=== PATIENT | female | born 1935 | race Caucasian/White ===

== ENCOUNTER 2021-11-13 10:47 | Inpatient (IN) ==
[2021-11-13 11:37] LABS: Basophils # 0.1 K/mcL (0.0-0.2); Basophils % 0.7 %; Eosinophils # 0.3 K/mcL (0.0-0.6); Hematocrit 43.9 % (35.3-44.9); Hemoglobin 14.8 g/dL (11.5-15.4); Immature Granulocytes % 0.2 % (0-4); Lymphocytes # 0.8 K/mcL (0.6-4.6); Lymphocytes % 9.5 %; Mean Corpuscular HGB Conc 33.7 g/dL (31.6-35.5); Mean Corpuscular Hemoglobin 31.9 pg (28.0-33.3); Mean Corpuscular Volume 94.6 fL (83.0-100.0); Mean Platelet Volume 9.4 fL (9.4-12.4); Monocytes # 0.5 K/mcL (0.0-1.3); Monocytes % 6.3 %; Neutrophils # 6.6 K/mcL (1.6-8.9); Platelet Count 218 K/mcL (140-400); Red Blood Count 4.64 M/mcL (3.82-4.97); Red Cell Distribution Width 12.1 % (11.5-14.5); Segmented Neutrophils % 80.3 %; White Blood Count 8.2 K/mcL (4.3-11.1)
[2021-11-13 11:58] LABS: Alanine Aminotransferase 15 Units/L (7-52); Albumin 3.8 g/dL (3.5-5.7); Albumin/Globulin Ratio 1.5 (1.1-2.2); Alkaline Phosphatase 87 Units/L (34-104); Aspartate Amino Transferase 31 Units/L (13-39); BUN/Creatinine Ratio 26 (6-26); Bilirubin,Total 0.4 mg/dL (0.3-1.0); Blood Urea Nitrogen 24 mg/dL (8-23); Calcium 8.9 mg/dL (8.6-10.3); Carbon Dioxide 29 mEq/L (23-29); Chloride 104 mEq/L (98-107); Globulin 2.5 g/dL (2.4-3.5); Glucose 344 mg/dL (70-105); Osmolality,Calculated 312 (280-300); Potassium 3.9 mEq/L (3.5-5.1); Sodium 142 mEq/L (136-145); Total Protein 6.3 g/dL (6.4-8.9); Troponin I < 0.03 ng/mL (< 0.04); eGFR For African Americans > 60 (> 60); eGFR For Non-African Americans 57 (> 60)
[2021-11-13] MEDS ORDERED: Insulin LISPRO 300 UNITS/3 ML VIAL SUBQ ONE (13:12)
[2021-11-13] MEDS ORDERED: Dextrose 4 GM Chewable Tablets PO PRN ×2 (13:17)
[2021-11-13] MEDS ORDERED: D5% in Water 1,000 ML IVC PRN (13:17)
[2021-11-13] MEDS ORDERED: *HR* Dextrose 50 % in Water (Syg) 50 ML SYRINGE IVP PRN (13:17)
[2021-11-13] MEDS ORDERED: Aspirin 325 MG TABLET PO ONE (13:21)
[2021-11-13] MEDS: Insulin LISPRO 300 UNITS/3 ML VIAL SUBQ SCH ×3 (14:20→21:30)
[2021-11-13] MEDS ORDERED: Ondansetron 4 MG/2 ML VIAL IVP PRN (14:26)
[2021-11-13] MEDS ORDERED: Naloxone 0.4 MG/ML INJ IVP PRN (14:26)
[2021-11-13 15:03] LABS: Bacteria,Urine Few per hpf (None-Few); Bilirubin,Urine Negative (Negative); Blood,Urine Negative (Negative); Clarity,Urine Clear (Clear); Color,Urine Light-Yellow (Yellow); Glucose,Urine (UA) >=1000 mg/dL (Normal); Ketones,Urine Negative (Negative); Leukocyte Esterase,Urine Small (Negative); Mucus,Urine Few per lpf (None-Few); Nitrite,Urine Negative (Negative); PH,Urine 5.5 pH Units (5.0-8.0); Protein,Urine Trace mg/dL (Neg-Trace); RBC,Urine 0-3 per hpf (0-3); Urobilinogen,Urine Normal (Normal); WBC,Urine 30-50 per hpf (0-3)
[2021-11-13] MEDS ORDERED: Perflutren Lipid Microsphere 1.3 ML in 0.9 % Sodium Chloride 8.7 ML IVP PRN (15:20)
[2021-11-13] MEDS: amLODIPine 5 MG TABLET PO SCH (16:09)
[2021-11-14 05:25] LABS: INR 1.1; Prothrombin Time 12.1 Seconds (9.4-12.1)
[2021-11-14 05:52] LABS: Alanine Aminotransferase 14 Units/L (7-52); Albumin 3.6 g/dL (3.5-5.7); Albumin/Globulin Ratio 1.4 (1.1-2.2); Alkaline Phosphatase 83 Units/L (34-104); Aspartate Amino Transferase 30 Units/L (13-39); BUN/Creatinine Ratio 28 (6-26); Bilirubin,Total 0.5 mg/dL (0.3-1.0); Blood Urea Nitrogen 23 mg/dL (8-23); Calcium 8.8 mg/dL (8.6-10.3); Carbon Dioxide 23 mEq/L (23-29); Chloride 106 mEq/L (98-107); Chol/HDL Ratio 2.6 (0-4.9); Cholesterol 136 mg/dL (< 200); Estimated Average Glucose 217 mg/dl; Globulin 2.6 g/dL (2.4-3.5); Glucose 216 mg/dL (70-105); HDL Cholesterol 53 mg/dL (40-59); Hemoglobin A1C 9.2 %; LDL Cholesterol,Calculated 58 mg/dL (< 100); Osmolality,Calculated 302 (280-300); Potassium 3.9 mEq/L (3.5-5.1); Sodium 141 mEq/L (136-145); Total Protein 6.2 g/dL (6.4-8.9); Triglycerides 126 mg/dL (< 150); eGFR For African Americans > 60 (> 60); eGFR For Non-African Americans > 60 (> 60)
[2021-11-14] MEDS: amLODIPine 5 MG TABLET PO SCH (07:56)
[2021-11-14] MEDS: Aspirin Enteric Coated 81 MG Tablet PO SCH (07:56)
[2021-11-14] MEDS: Insulin LISPRO 300 UNITS/3 ML VIAL SUBQ SCH ×4 (07:58→20:20)
[2021-11-14 11:31] LABS: Folate 14.7 ng/mL (3.0-16.0)
[2021-11-14] MEDS: *HR* Metformin 500 MG TABLET PO SCH (17:22)
[2021-11-14] MEDS ORDERED: Insulin DETEMIR 100 UNIT/ML X5UNITS SUBQ SCH (21:00)
[2021-11-15] MEDS: *HR* Metformin 500 MG TABLET PO SCH ×2 (08:15→16:47)
[2021-11-15] MEDS: Aspirin Enteric Coated 81 MG Tablet PO SCH (08:15)
[2021-11-15] MEDS: amLODIPine 5 MG TABLET PO SCH (08:15)
[2021-11-15] MEDS: Insulin LISPRO 300 UNITS/3 ML VIAL SUBQ SCH ×4 (08:16→22:02)
[2021-11-15] MEDS: Insulin DETEMIR 100 UNIT/ML X5UNITS SUBQ SCH (22:02)
[2021-11-16] MEDS: *HR* Metformin 500 MG TABLET PO SCH ×2 (08:36→17:30)
[2021-11-16] MEDS: Aspirin Enteric Coated 81 MG Tablet PO SCH (08:36)
[2021-11-16] MEDS: Insulin LISPRO 300 UNITS/3 ML VIAL SUBQ SCH ×4 (08:36→20:21)
[2021-11-16] MEDS: amLODIPine 5 MG TABLET PO SCH (08:36)
[2021-11-16] MEDS: Insulin DETEMIR 100 UNIT/ML X5UNITS SUBQ SCH ×2 (08:38→20:20)
[2021-11-16 14:46] LABS: Influenza A PCR Negative (Negative); Influenza B PCR Negative (Negative); Resp. Syncytial Virus PCR Negative (Negative)
[2021-11-16 14:47] LABS: SARS-CoV-2 by PCR (In House) Negative (Negative)
[2021-11-17] MEDS: Insulin DETEMIR 100 UNIT/ML X5UNITS SUBQ SCH (07:44)
[2021-11-17] MEDS: *HR* Metformin 500 MG TABLET PO SCH (07:44)
[2021-11-17] MEDS: Aspirin Enteric Coated 81 MG Tablet PO SCH (07:44)
[2021-11-17] MEDS: amLODIPine 5 MG TABLET PO SCH (07:45)
[2021-11-17 07:58] VITALS: BP 156/88; PULSE 89; TEMP 97.6; O2SAT 98
== END 2021-11-17 09:32 | DRG 66 ==
LOC: EMEROOARM 10:47 → 3ANU 10:47
PROVIDERS: ADMIT Student in an Organized Health Care Education/Training Program; ATTEND Student in an Organized Health Care Education/Training Program